=== PATIENT | male | born 1950 | race African-American/Black ===

== ENCOUNTER → 2018-02-15 11:35 | Outpatient (CLI) | payer MEDICARE, SELFPAY ==
[2018-02-06 14:55] VITALS: BMI 25.4
--- NOTE | 2018-02-15 11:38 | MRI_ITS ---
STUDY: MRI BRAIN WITH AND WITHOUT CONTRAST REASON FOR EXAM: Male, 67 years old. New onset headache TECHNIQUE: Standardized multiplanar fat and water weighted pulse sequences were obtained. 8 ml of Gadavist contrast material was administered intravenously for the contrast portion of the examination. COMPARISON: None. FINDINGS: Normal size of the ventricles and extra-axial spaces for the patient's age. There are multiple white matter hyperintensities, distributed throughout the deep white matter tracts of the cerebral hemispheres, consistent with moderate chronic white matter ischemic changes. There is no evidence for recent intracranial ischemia or other cause of cytotoxic edema on diffusion weighted imaging (DWI). Normal T2* images of the brain without demonstrated susceptibility artifact. There is no demonstrated hemosiderin stain. Normal bilateral basal ganglia. Normal thalami. There is no extra-axial fluid accumulation. Normal flow voids within the major intracranial circulation suggesting patency by spin echo criteria. Normal venous enhancement. There is no enhancing intra-axial or extra-axial abnormality. Normal sella turcica, pituitary gland, infundibular stalk, optic chiasm and hypothalamus. Normal tectal plate and pineal gland. Normal midbrain, virgil and medulla. Normal cerebellum. Normal basal cisterns. Normal bilateral temporal bones. Normal bilateral internal auditory canals. No demonstrated orbital abnormality, within the constraints of a routine brain study. Normal visualized paranasal sinuses. Normal calvarium and skull base. Normal visualized soft tissue structures. Normal visualized upper cervical spine. MRI/Brain W/WO Contrast IMPRESSION: Involutional changes of the brain, as described above. Electronically Signed: Surinder Lambert MD at 14:59 EST , Service support ,
[2018-02-15 12:18] LABS: Absolute Lymphocyte Count 2.12 X10^3/ul (0.83-4.51); Basophil# 0.02 X10^3/uL; Basophil% 0.4 % (0-1); Eosinophil# 0.14 X10^3/uL; Eosinophils% 2.9 % (0-5); Hemoglobin 13.3 g/dl (13.0-16.5); Lymphocyte # 2.12 X10^3/ul (4.0); Lymphocyte % 43.4 % (19-41); Mean Corp Hgb Conc 31.7 g/gl (32-36); Mean Corpuscular Hgb 29.7 pg (27.0-32.0); Mean Corpuscular Volume 93.8 fL (80-94); Mean Platelet Vol. 12.1 fl (6.2-12.0); Monocyte# 0.58 X10^3/uL; Monocyte% 11.9 % (0-10); Platelet Count 130 K/mm3 (150-450); RBC Distribution Width CV 12.8 % (11.6-14.6); Red Blood Count 4.48 M/mm3 (4.6-6.2); White Blood Count 4.9 K/mm3 (4.4-11.0)
[2018-02-15 12:25] LABS: POSITIVE COUNT NO; POSITIVE DIFFERENTIAL NO; POSITIVE MORPHOLOGY NO
[2018-02-15 12:32] LABS: CRP < 2.90 mg/L (0.0-3.0)
[2018-02-15 12:35] LABS: Creatinine, Serum 1.18 mg/dL (0.70-1.30); EST Glomerular Filtration Rate 65 mL/min (>60); Est Glom Filt Rate - Afr Amer 79 mL/min (>60)
--- OUTSIDE RECORDS SUMMARY | 2018-04-03 05:04 | XMS RPT_ITS ---
:1950 Author Organization [facility] Care Team Providers Name Role Phone ZEN DIAZ MD Attending Unavailable HILARY CELIS, DR. ALETHA Salas Primary Care Unavailable HILARY CELIS, DR. ALETHA Salas Primary Care Unavailable UMAIR CELIS MD. ROSETTA Lawson Admitting Unavailable UMAIR CELIS MD. ROSETTA Lawson Attending Unavailable HILARY CELIS, DR. ALETHA Salas Consulting Unavailable UMAIR CELIS MD. ROSETTA Lawson Consulting Unavailable MEREDITH WILLINGHAM MD Consulting Unavailable Isckarus, Mansour Attending Unavailable Isckarus, Mansour Referring Unavailable Alva García Primary Care Unavailable Isckarus, Mansour Attending Unavailable Alva García Primary Care Unavailable Isckarus, Mansour Consulting Unavailable Isckarus, Mansour Attending Unavailable Alva García Primary Care Unavailable Isckarus, Mansour Attending Unavailable Alva García Primary Care Unavailable Isckarus, Mansour Consulting Unavailable PROBLEMS PROBLEMS DATE TYPE CONDITION / CODE ATTENDING STATUS SOURCE 02/15/2018 Unknown R51 - Headache / Isckarus, Active Vicente R51(ICD-10) [facility] Repository 02/15/2018 Unknown R79.89 - Other Isckarus, Active Vicente specified [facility]ly [facility] Hospital findings of Repository blood chemistry / R79.89(ICD-10) PROCEDURES PROCEDURES No Procedure Records FoundRESULTS RESULTS ONCOLOGY VISIT REPORT Observed: 02/19/2018 Status: F Source: [place] 11:32 AM [facility] REPOSITORY [facility] Medical Oncology [address] [place] [address] OFFICE VISIT Date of Service: 02/19/18 1117 MR#: [id number] Acct: [id number] Name: DAGMAR POST Rep #: [id number] : 1950 From: Danielle Cortes MD Age/Sex: 67/M Location: OMD Status: Signed - Problem List (1) Abnormal CBC Status: Acute (2) Thrombocytopenia Status: Acute - Date of Service Date of Service:: 02/19/18 - Chief Complaint Normal CBC - History of Present Illness Patient is a 67-year-old gentleman who recently established care with Dr. García and routine CBC on January 13, 2018 reported a normal WBC of 5.0 with an absolute neutrophil count of 1.65, absolute lymph count of 2.55 and a left shift with increased myelocytes, normal platelet count of 200 K. Patient's H AND H are within normal range (13.4 and 42) with a normal MCV of 92. He has no known chronic inflammatory or infectious diseases. He smoked lightly in his young adult years less than a pack daily but has not smoked for over 30 years now. 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 A repeat CBC February 15, 2018 showed no abnormalities with WBCs, mild thrombocytopenia with a platelet count of 130 K. Since January 2018 he has experienced a new onset headache predominantly left-sided was diagnosed with trigeminal neuralgia and initially treated with carbamazepine without much improvement then switched to amitriptyline with some improvement. Brain MRI February 15, 2018 showed no evidence of mass-effect and involutional changes. - Past Medical/Social History Social History Smoking Status Never smoker Review of Systems Neurological:: Reports: Headache - Improving Comment: See my full consult note of February 06, 2018 Vital Signs Height 5 ft 7.5 in Weight: 77.02 kg Weight in Pounds 169.8 lbs Pulse Ox 94 - Physical Exam General: Alert, Oriented x3, No apparent distress, - - ECOG 0-1 For a full exam please see my note of February 06, 2018 Laboratory Data: RUN DATE: 02/19/18 [facility], DEPARTMENT OF LABORATORIES PAGE 1 RUN TIME: 1125 Specimen Inquiry [address] [place], [address] PATIENT: DAGMAR POST LOC: MRI U #: [id number] : 1950 AGE/SX: 67/M FACILITY: [facility] ROOM: RE02/15/[address]: Danielle Cotres MD STATUS: REG CLI BED: DIS: SPEC #: [id number] LORETA: 02/15/18 STATUS: COMP REQ #: [id number] RECD: 02/15/[address]: Danielle Cortes MD ENTERED: 02/15/[address]: Alva García DO COMMENTS: Reason for Laboratory Test . Test Result Flag Adult Reference Range CBCD WBC 4.9 4.4-11.0 K/mm3 RBC 4.48 L 4.6-6.2 M/mm3 HGB 13.3 13.0-16.5 g/dl HCT 42.0 40-54 % MCV 93.8 80-94 fL MCH 29.7 27.0-32.0 pg MCHC 31.7 L 32-36 g/gl RDW CV 12.8 11.6-14.6 % RDW SD 44.0 H 35.1-43.9 fl PLT 130 L 150-450 K/mm3 MPV 12.1 H 6.2-12.0 fl NEUT% 41.0 L 47-70 % LY% 43.4 H 19-41 % MONO% 11.9 H 0-10 % EO% 2.9 0-5 % BASO% 0.4 0-1 % IG % 0.400 0.0-0.9 % IG% - Immature Granulocytes (promyelocytes, myelocytes and metamyelocytes) > 1% indicates that a LEFT SHIFT is Present. Absolute Neut 2.0 2.0-7.7 X10 Absolute Lymph 2.12 0.83-4.51 X10 END OF REPORT Diagnostic Data: Brain MRI February 15, 2018: No mass lesions, chronic involutional changes Assessment and Plan 67-year-old male with: 1. Abnormal CBC: A left shift in myeloid series with increased myelocytes but no blasts noted on routine CBC in January 2018, resolved on follow-up in February 2018 most consistent with a reactive process. He has a residual mild thrombocytopenia, no further workup from hematology at this time and will place him on surveillance follow-up in 1 year 2. New onset headache, presumed trigeminal neuralgia, with no evidence of mass-effect on brain MRI February 2018. Patient was seen with his , impression and plan discussed Medications: Prescriptions This Visit Medication Instructions Recorded Acetaminophen/Diphenhydramine 1 each PO QHS 02/05/18 [Tylenol Pm Ex-Strength Caplet] Aspirin [Adult Aspirin] 81 mg PO DAILY 02/05/18 Clopidogrel Bisulfate [Plavix] 75 mg PO DAILY 02/05/18 Primary Care Provider: Alva García MD Referring Provider: 02/19/18 1132 <Electronically signed by Danielle Cortes MD> Date Danielle Cortes MD Cosigner Signature: Date (if applicable) CC: Alva García DO CBC W/DIFF, AUTOMATED Collected: 02/15/2018 Status: F Source: [place] 12:00 PM [facility] REPOSITORY Order Comment: Reason for Laboratory Test . TYPE CODE TESTS RESULT OUT OF RANGE REFERENCE UNITS LAB L100.1000 4.4-11.0 K/mm3 Normal WBC 4.9 LAB L100.1200 4.6-6.2 M/mm3 Low RBC 4.48 LAB L100.1300 13.0-16.5 g/dl Normal HGB 13.3 LAB L100.1400 40-54 % Normal HCT 42.0 LAB L100.1500 80-94 fL Normal MCV 93.8 LAB L100.1600 27.0-32.0 pg Normal MCH 29.7 LAB L100.1700 32-36 g/gl Low MCHC 31.7 LAB L100.1810 11.6-14.6 % Normal RDW CV 12.8 LAB L100.1820 35.1-43.9 fl High RDW SD 44.0 LAB L100.1900 150-450 K/mm3 Low PLT 130 LAB L100.2000 6.2-12.0 fl High MPV 12.1 LAB L100.2100 47-70 % Low NEUT% 41.0 LAB L100.2200 19-41 % High LY% 43.4 LAB L100.2300 0-10 % High MONO% 11.9 LAB L100.2400 0-5 % Normal EO% 2.9 LAB L100.2500 0-1 % Normal BASO% 0.4 LAB L100.2550 0.0-0.9 % Normal IM GRAN % 0.400 Result Comment: IG% - Immature Granulocytes (promyelocytes, myelocytes and metamyelocytes) > 1% indicates that a LEFT SHIFT is Present. LAB L100.2620 2.0-7.7 X10 3/uL Normal Absolute Neut 2.0 LAB L100.2720 0.83-4.51 X10 3/ul Normal Absolute Lymph 2.12 Performed By: #### L100.0100 #### [facility] [address] [place], [place], [address] CRP Collected: 02/15/2018 Status: F Source: [place] 12:00 PM [facility] REPOSITORY Order Comment: Reason for Laboratory Test . TYPE CODE TESTS RESULT OUT OF RANGE REFERENCE UNITS LAB L501.6710 0.0-3.0 mg/L Normal < 2.90 C-REACTIVE PROT Result Comment: C-Reactive Protein (CRP) provides useful information for the diagnosis, therapy and monitoring of inflammatory processes and associated diseases. For the evaluation of Relative Risk for Cardiovascular Disease, a High Sensitivity CRP (HSCRP) should be ordered. Performed By: #### L501.6710 #### [facility] [address] [place], [address] SERUM CREATININE AND Collected: 02/15/2018 Status: F Source: [place] GFR 12:00 PM [facility] REPOSITORY Order Comment: Reason for Laboratory Test To be drawn prior to MRI TYPE CODE TESTS RESULT OUT OF RANGE REFERENCE UNITS LAB L501.1100 0.70-1.30 mg/dL Normal 1.18 CREAT,SERUM Result Comment: The validity of the calculated GFR AND GFRAA in patients over 70 years has not been determined. Clinical correlation is essential. LAB L501.1110 >60 mL/min Normal EST GFR 65 Result Comment: Non- GFR Calc LAB L501.1115 >60 mL/min Normal EST GFR - AA 79 Result Comment: GFR Calc Performed By: #### L501.1105 #### [facility] [address] [place], [address] BRAIN W/WO CONTRAST Observed: 02/15/2018 Status: F Source: [place] 11:38 AM [facility] REPOSITORY [facility] Imaging Services [address] [facility] [place] [address] Brain W/WO Contrast MR#: [id number] Acct: [id number] Name: DAGMAR POST Rep #: [id number] : 1950 M 67 From: Surinder Lambert MD PCP: Alva García DO Status: REG CLI Study: Brain W/WO Contrast Date of Exam: 02/15/18 Exam# [id number] Ordering Dr: Danielle Cortes MD STUDY: MRI BRAIN WITH AND WITHOUT CONTRAST REASON FOR EXAM: Male, 67 years old. New onset headache TECHNIQUE: Standardized multiplanar fat and water weighted pulse sequences were obtained. 8 ml of Gadavist contrast material was administered intravenously for the contrast portion of the examination. COMPARISON: None. FINDINGS: Normal size of the ventricles and extra-axial spaces for the patient's age. There are multiple white matter hyperintensities, distributed throughout the deep white matter tracts of the cerebral hemispheres, consistent with moderate chronic white matter ischemic changes. There is no evidence for recent intracranial ischemia or other cause of cytotoxic edema on diffusion weighted imaging (DWI). Normal T2* images of the brain without demonstrated susceptibility artifact. There is no demonstrated hemosiderin stain. Normal bilateral basal ganglia. Normal thalami. There is no extra-axial fluid accumulation. Normal flow voids within the major intracranial circulation suggesting patency by spin echo criteria. Normal venous enhancement. There is no enhancing intra-axial or extra-axial abnormality. Normal sella turcica, pituitary gland, infundibular stalk, optic chiasm and hypothalamus. Normal tectal plate and pineal gland. Normal midbrain, virgil and medulla. Normal cerebellum. Normal basal cisterns. Normal bilateral temporal bones. Normal bilateral internal auditory canals. No demonstrated orbital abnormality, within the constraints of a routine brain study. Normal visualized paranasal sinuses. Normal calvarium and skull base. Normal visualized soft tissue structures. Normal visualized upper cervical spine. MRI/Brain W/WO Contrast IMPRESSION: Involutional changes of the brain, as described above. Electronically Signed: Surinder Lambert MD at 14:59 EST , Service support , CC: Alva García DO; Danielle Cortes MD Assistant Finance Director: Signed ONCOLOGY HISTORY AND Observed: 02/06/2018 Status: F Source: [place] PHYSICAL 4:32 PM [facility] REPOSITORY [facility] Medical Records Department [address] [place] [id number] History and Physical 02/06/18 1618 MR#: [id number] Acct: [id number] Name: DAGMAR POST Rep #: [id number] : 1950 67 From: Danielle Cortes MD PCP: Alva García DO Status: REG RCR Y Location: OMD - Problem List (1) Abnormal CBC Status: Acute Subjective Date of Service:: 02/06/18 Chief Complaint: Abnormal CBC History of Present Illness: Patient is a 67-year-old gentleman who recently established care with Dr. García and routine CBC on January 13, 2018 reported a normal WBC of 5.0 with an absolute neutrophil count of 1.65, absolute lymph count of 2.55 and a left shift with increased myelocytes, normal platelet count of 200 K. Patient's H AND H are within normal range (13.4 and 42) with a normal MCV of 92. He has no known chronic inflammatory or infectious diseases. He smoked lightly in his young adult years less than a pack daily but has not smoked for over 30 years now. 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 Since January 2018 he has experienced a new onset headache predominantly left-sided was diagnosed with trigeminal neuralgia and initially treated with carbamazepine without much improvement then switched to amitriptyline with some improvement. He also reported an ER visit in January 2018 at [facility] because of chest pain and shortness of breath where he underwent some imaging studies of his chest, some cardiac workup and to his knowledge no specific pathology was found. These records are not available at the time of this consultation. Health History: Past Surgical History (Last Reviewed 02/06/18 @ 14:50 by Shantel Pearson) History of cardiac catheterization (Acute) History of inguinal hernia repair (Acute) Family History (Last Reviewed 02/06/18 @ 14:51 by Shantel Pearson) Mother Cancer Sister Cancer Grandmother Glaucoma Allergies/Adverse Reactions: Allergy/AdvReac Type Severity Reaction Status Date / Time No Known Allergies Allergy Verified 02/06/18 14:51 Risk Factors Social History Smoking Status Never smoker Tobacco Risk Data: Tobacco Risk Smoking Status Never smoker Type of tobacco: Smokeless tobacco usage: Never Items/Day: Year started: Years used: Counseled to quit/cut down: Reason for no counseling performed: Reason for no pharmacotherapy: Tobacco use comments: Passive smoke exposure: No Substance Risk Drug use: No Caffeine use [drinks/day]: 5 Alcohol use: Yes Type of alcohol: occasionally Drinks per day: Has patient felt the need to cut down: Has the patient been annoyed by complaints: Has the patient felt guilty about drinking: Has the patient needed an eye type copy examiner in the mornings: Comments: Review of Systems Constitutional:: Denies: Fever, Sweats, Weight loss, Appetite change, Chills Cardiovascular:: Reports: Dyspnea on exertion. Denies: Chest pain, Palpitations, Orthopnea, PND, Shortness of breath Respiratory: Reports: Shortness of breath upon exertion. Denies: Cough, Hemoptysis, Shortness of Breath, Wheezing Gastrointestinal:: Denies: Abdominal pain, Nausea, Vomiting, Diarrhea, Constipation, Hematochezia Genitourinary: Denies: Dysuria, Hematuria, 15, Flank pain Musculoskeletal:: Denies: Back pain, Myalgia, Arthralgia Skin: Denies: Rash, Skin Changes, Wounds Neurological:: Reports: Headache - See HPI, Hearing loss, - - He has a chronic speech difficulty (all his life) and chronic unsteady gait when attempting to walk on a straight line heel to toe all his life. Denies: Dizziness, Visual changes, Tinnitus Psychiatric: Denies: Anxiety, Depression, Homicidal Ideations, Suicidal Ideations Vital Signs Height 5 ft 7.5 in Weight: 74.933 kg Weight in Pounds 165.2 lbs Pulse Ox 95 - Physical Exam General: Alert, Oriented x3, No apparent distress, - - ECOG 1 HEENT: Atraumatic, PERRLA, EOMI, Normocephalic Oropharynx:: Dry mucosa Neck:: Supple, Trachea midline. Negative for: JVD, bilateral Cardiac:: Regular rate, Regular rhythm, Normal S1, Normal S2. Negative for: Murmur Lungs: Clear to auscultation, Excusion symmetrical. Negative for: Rhonchi, Wheezes Abdomen:: Soft, Non-tender, Non-distended. Negative for: Hepatosplenomegaly Extremities:: Negative for: Cyanosis, Edema Neurological: Neuro grossly intact - Nonlateralizing, Slurred Speech - He has some degree of dysarthria reported by him and his all his life, Unsteady Gait - Unable to walk heel to toe in a straight line but reported that this is chronic years Skin:: Negative for: Lesions, Rash, Petechiae, Ecchymosis Psychiatric:: Appropriate affect, Euthymic Lymphatics:: Negative for: Cervical lymphadenopathy, Supraclavicular lymphadenopathy, Axillary lymphadenopathy Laboratory Data: Outside CBC from January 09, 2018 reviewed and summarized in HPI Assessment and Plan 67-year-old male with: 1. Abnormal CBC: A left shift in myeloid series with increased myelocytes but no blasts. Total WBC, neutrophil count and lymph count are within normal range. H AND H and platelets are within normal range also. The most likely cause for this is a reactive process rather than a primary bone marrow disease. We will repeat CBC today. 2. New onset headache, presumed trigeminal neuralgia, will obtain brain MRI to rule out intracranial pathology. 3. C-reactive protein. 4. Request records from ER visit at [facility] January 2018. Follow-up after above. Patient was seen with his , impression and plan discussed Medications: Prescriptions This Visit Medication Instructions Recorded Acetaminophen/Diphenhydramine 1 each PO QHS 02/05/18 [Tylenol Pm Ex-Strength Caplet] Aspirin [Adult Aspirin] 81 mg PO DAILY 02/05/18 Clopidogrel Bisulfate [Plavix] 75 mg PO DAILY 02/05/18 Primary Care Provider: Alva García MD Referring Provider: 02/06/18 2163 <Electronically signed by Danielle Cortes MD> Date Danielle Cortes MD Cosigner Signature: Date (if applicable) CC: Alva García DO; Danielle Cortes MD Signed NM MYOCARDIAL SPECT Observed: 01/03/2018 Status: F Source: GABO STRESS/REST 9:00 AM [facility] REPOSITORY ORIGINAL NM MYOCARDIAL SPECT STRESS/REST CLINICAL STATEMENT: chest pain TECHNIQUE: Lexiscan dose:0.4 mg Radiopharmaceutical (stress): Tc-99m Sestamibi Dose:10.0 mCi Radiopharmaceutical (rest): Tc-99m Sestamibi Dose:30.7 mCi SPECT acquisition and processing Reconstruction and reorientation of SPECT images into short axis, vertical and horizontal long axis planes Quantitative LVEF assessment COMPARISON:None REPORT:Left ventricle appears normal size on both stress and rest images. On the stress images, there is reduced radiotracer uptake in the anterior wall. Rest of the myocardium has homogenous radiotracer uptake. On the resting images, there is similar reduced radiotracer upta ke involving the anterior, apical and inferoseptal region. Gated SPECT imaging revealed normal wall motion and normal end systolic brightening and thickening of all myocardial segments. Calculated LVEF 56%. Left ventricle end-diastolic volume 70 mL. TID ratio 0.96 IMPRESSION: 1. No evidence of inducible ischemia or prior myocardial infarction. 2. Normal wall motion and left ventricle systolic function, calculated LVEF 56%. 3. Soft tissue/breast attenuation artifact noted. 4. No prior study available for comparison. Interpreted By: Frankie Oquendo Preliminary Report By: Frankie Oquendo Electronically Signed By: Frankie Oquendo Dictated Date: 01/03/2018 1:02:24 PM Prelim Date: 01/03/2018 1:02:24 PM Sign Date: 01/03/2018 1:06:59 PM TROP Collected: 01/03/2018 Status: F Source: [place] 5:13 AM [facility] REPOSITORY TYPE CODE TESTS RESULT OUT OF REFERENCE UNITS RANGE LAB TROP(LOINC) 0.000-0.040 ng/mL Troponin <0.020 Result Comment: Troponin I reference range: 0.00-0.040 ng/mL Negative and non-diagnostic. >0.040 ng/mL Consistent with cardiac damage, increased clinical risk and possibility of myocardial infarction. Serial measurements, a rise & fall in test results, clinical history, appropriate symptoms and/or ECG changes may help assess possibility of [place]. *Other non-acute coronary syndrome conditions such as CHF, myocarditis, pulmonary emboli, sepsis and cardiac surgery could result in myocardial damage and increased troponin levels. Performed By: #### TROP #### [place] [address] TROP Collected: 01/02/2018 Status: F Source: [facility] 10:58 PM [facility] REPOSITORY TYPE CODE TESTS RESULT OUT OF REFERENCE UNITS RANGE LAB TROP(LOINC) 0.000-0.040 ng/mL Troponin <0.020 Result Comment: Troponin I reference range: 0.00-0.040 ng/mL Negative and non-diagnostic. >0.040 ng/mL Consistent with cardiac damage, increased clinical risk and possibility of myocardial infarction. Serial measurements, a rise & fall in test results, clinical history, appropriate symptoms and/or ECG changes may help assess possibility of [place]. *Other non-acute coronary syndrome conditions such as CHF, myocarditis, pulmonary emboli, sepsis and cardiac surgery could result in myocardial damage and increased troponin levels. Performed By: #### TROP #### [address] [address] TROP Collected: 01/02/2018 Status: F Source: [place] 4:53 PM [facility] REPOSITORY TYPE CODE TESTS RESULT OUT OF REFERENCE UNITS RANGE LAB TROP(LOINC) 0.000-0.040 ng/mL Troponin <0.020 Result Comment: Troponin I reference range: 0.00-0.040 ng/mL Negative and non-diagnostic. >0.040 ng/mL Consistent with cardiac damage, increased clinical risk and possibility of myocardial infarction. Serial measurements, a rise & fall in test results, clinical history, appropriate symptoms and/or ECG changes may help assess possibility of [place]. *Other non-acute coronary syndrome conditions such as CHF, myocarditis, pulmonary emboli, sepsis and cardiac surgery could result in myocardial damage and increased troponin levels. Performed By: #### TROP #### [address] [address] XR CHEST 2 VIEWS Observed: 01/02/2018 Status: F Source: [place] 8:50 AM [facility] REPOSITORY ORIGINAL XR CHEST 2 VIEWS CLINICAL STATEMENT: Chest Pain. COMPARISON: 02/06/2014 FINDINGS: The cardiomediastinal contours are unchanged. Monitoring leads overlie the image. No focal consolidation, pleural effusion, vascular congestion or pneumothorax is shown. No acute osseous findings identified. IMPRESSION: No acute radiographic findings. Interpreted By: Mitali Gamboa MD Preliminary Report By: Mitali Gamboa MD Electronically Signed By: Mitali Gamboa MD Dictated Date: 01/02/2018 8:55:18 AM Prelim Date: 01/02/2018 8:55:18 AM Sign Date: 01/02/2018 8:56:23 AM CBC Collected: 01/02/2018 Status: F Source: [place] [facility] 8:13 AM [facility] REPOSITORY TYPE CODE TESTS RESULT OUT OF REFERENCE UNITS RANGE LAB WBC(LOINC) 4.60-10.80 10 3/mcL WBC 6.20 LAB RBCCT(LOINC 4.04-6.13 10 6/mcL ) RBC 4.79 LAB HGB(LOINC) 14.0-18.0 G/dL Hgb 14.1 LAB HCT(LOINC) 42.0-52.0 % Hct 44.0 LAB MCV(LOINC) 80.0-94.0 fL MCV 91.8 LAB MCH(LOINC) 27.0-31.2 pg MCH 29.4 LAB MCHC(LOINC) 31.8-35.4 G/dL MCHC 32.0 LAB RDW(LOINC) 11.5-14.5 % RDW 12.5 LAB PLT(LOINC) 130-400 10 3/mcL Platelet 146 LAB MPV(LOINC) 7.4-10.4 fL MPV 9.5 Performed By: #### CBC, ADIFF, ANEU #### [address] [address] #### TROP, BMP, GFR #### [address] [address] .AUTO DIFF Collected: 01/02/2018 Status: F Source: [facility] 8:13 AM [facility] REPOSITORY TYPE CODE TESTS RESULT OUT OF REFERENCE UNITS RANGE LAB TITA(LOINC) 37.0-80.0 % Neutrophil % 41.5 LAB LYM(LOINC) 10.0-50.0 % Lymphocyte % 45.7 LAB MON(LOINC) 1.7-13.0 % Monocyte % 9.9 LAB EO(LOINC) 0.0-7.0 % Eosinophil % 2.0 LAB BAS(LOINC) 0.0-2.5 % Basophil % 0.9 LAB ABLYM(LOIN 0.77-3.85 10 3/mcL C) Lymphocyte, 2.80 Absolute LAB BALDO(LOINC 0.15-1.00 10 3/mcL ) Monocyte, 0.60 Absolute LAB AEOS(LOINC 0.00-0.40 10 3/mcL ) Eosinophil, 0.10 Absolute LAB ABAS(LOINC 0.00-0.19 10 3/mcL ) Basophil, 0.10 Absolute Performed By: #### CBC, ADIFF, ANEU #### [address] [address] #### TROP, BMP, GFR #### [address] [address] .NEUABS Collected: 01/02/2018 Status: F Source: [facility] 8:13 AM [facility] REPOSITORY TYPE CODE TESTS RESULT OUT OF REFERENCE UNITS RANGE LAB ANEU(LOINC) 2.85-6.16 10 3/mcL Low Neutrophil, 2.60 Absolute Performed By: #### CBC, ADIFF, ANEU #### [address] [address] #### TROP, BMP, GFR #### [place] [id number] TROP Collected: 01/02/2018 Status: F Source: [facility] 8:13 AM [facility] REPOSITORY TYPE CODE TESTS RESULT OUT OF REFERENCE UNITS RANGE LAB TROP(LOINC) 0.000-0.040 ng/mL Troponin <0.020 Result Comment: Troponin I reference range: 0.00-0.040 ng/mL Negative and non-diagnostic. >0.040 ng/mL Consistent with cardiac damage, increased clinical risk and possibility of myocardial infarction. Serial measurements, a rise & fall in test results, clinical history, appropriate symptoms and/or ECG changes may help assess possibility of [place]. *Other non-acute coronary syndrome conditions such as CHF, myocarditis, pulmonary emboli, sepsis and cardiac surgery could result in myocardial damage and increased troponin levels. Performed By: #### HERMES TORRESIFF, ANEU #### [place] [address] #### TROP, BMP, GFR #### [place] [address] BMP Collected: 01/02/2018 Status: F Source: [facility] 8:13 AM [facility] REPOSITORY TYPE CODE TESTS RESULT OUT OF REFERENCE UNITS RANGE LAB GLU(LOINC) 80-115 mg/dL Glucose Level 102 LAB NA(LOINC) 136-145 mmol/L Sodium Level 136 LAB K(LOINC) 3.5-5.1 mmol/L Potassium Level 4.1 LAB CL(LOINC) 98-107 mmol/L Chloride 101 LAB CO2(LOINC) 23-31 mmol/L CO2 29 LAB EBAL(LOINC mEq/L ) Electrolyte Balance 6.0 LAB BUN(LOINC) 7-18 mg/dL Low BUN 1 LAB CRE(LOINC) 0.70-1.30 mg/dL Creatinine Lvl (s) 1.19 LAB BC(LOINC) 7-27 ratio Low BUN/Creatinine 1 Ratio LAB CA(LOINC) 8.4-10.2 mg/dL Calcium Lvl 9.8 Performed By: #### CBC, ADIFF, ANEU #### [facility] [address] [place], [place] [address] #### TROP, BMP, GFR #### [address] [address] .GFR Collected: 01/02/2018 Status: F Source: [place] [facility] 8:13 AM [facility] REPOSITORY TYPE CODE TESTS RESULT OUT OF REFERENCE UNITS RANGE LAB GFRAA(LOINC ml/min/1.73 ) sqm GFR 74 Palestinian Result Comment: GFR Population mean for , Non- Americans Ages 20-29 = 116 mL/min/1.73 sq.m. Ages 30-39 = 107 mL/min/1.73 sq.m. Ages 40-49 = 99 mL/min/1.73 sq.m. Ages 50-59 = 93 mL/min/1.73 sq.m. Ages 60-69 = 85 mL/min/1.73 sq.m. Ages 70+ = 75 mL/min/1.73 sq.m. Chronic Kidney Disease: Less than 60 mL/min/1.73 square meters End Stage Renal Disease: Less than 15 mL/min/1.73 square meters LAB GFRNO(LOINC) ml/min/1.73sqm GFR Non- 61 Result Comment: GFR Population mean for , Non- Americans Ages 20-29 = 116 mL/min/1.73 sq.m. Ages 30-39 = 107 mL/min/1.73 sq.m. Ages 40-49 = 99 mL/min/1.73 sq.m. Ages 50-59 = 93 mL/min/1.73 sq.m. Ages 60-69 = 85 mL/min/1.73 sq.m. Ages 70+ = 75 mL/min/1.73 sq.m. Chronic Kidney Disease: Less than 60 mL/min/1.73 square meters End Stage Renal Disease: Less than 15 mL/min/1.73 square meters Performed By: #### CBC, ADIFF, ANEU #### [place] [address] [place], [place] [address] #### TROP, BMP, GFR #### [address] [address] TROP Collected: 03/30/2017 Status: F Source: [facility] 10:12 AM [facility] REPOSITORY TYPE CODE TESTS RESULT OUT OF REFERENCE UNITS RANGE LAB TROP(LOINC) 0.00-0.30 ng/mL Troponin <0.30 Result Comment: Below measuring range >=0.30 Consistent with cardiac damage, increased clinical risk and possibility of myocardial infarction. Serial measurements, clinical history, appropriate symptoms and/or ECG changes may help assess possibility of [place]. *Other non-acute coronary syndrome conditions such as CHF, myocarditis, pulmonary emboli, sepsis and cardiac surgery could result in myocardial damage and increased troponin levels. Performed By: #### TROP, CBC, ADIFF, ANEU, BMP, GFR, APTT, PRO #### [place] [address] [place], [place] [address] CBC Collected: 03/30/2017 Status: F Source: [facility] 10:12 AM [facility] REPOSITORY TYPE CODE TESTS RESULT OUT OF REFERENCE UNITS RANGE LAB WBC(LOINC) 4.60-10.80 10 3/mcL High WBC 12.40 LAB RBCCT(LOINC 4.04-6.13 10 6/mcL ) RBC 4.66 LAB HGB(LOINC) 14.0-18.0 G/dL Low Hgb 13.7 LAB HCT(LOINC) 42.0-52.0 % Hct 42.3 LAB MCV(LOINC) 80.0-94.0 fL MCV 90.6 LAB MCH(LOINC) 27.0-31.2 pg MCH 29.3 LAB MCHC(LOINC) 31.8-35.4 G/dL MCHC 32.3 LAB RDW(LOINC) 11.5-14.5 % RDW 12.5 LAB PLT(LOINC) 130-400 10 3/mcL Platelet 183 LAB MPV(LOINC) 7.4-10.4 fL MPV 9.3 Performed By: #### TROP, CBC, ADIFF, ANEU, BMP, GFR, APTT, PRO #### [place] [address] [place], [place] [address] .AUTO DIFF Collected: 03/30/2017 Status: F Source: [facility] 10:12 [facility] REPOSITORY TYPE CODE TESTS RESULT OUT OF REFERENCE UNITS RANGE LAB TITA(LOINC) 37.0-80.0 % Neutrophil % 58.1 LAB LYM(LOINC) 10.0-50.0 % Lymphocyte % 25.1 LAB MON(LOINC) 1.7-13.0 % Monocyte High % 14.2 LAB EO(LOINC) 0.0-7.0 % Eosinophil % 2.3 LAB BAS(LOINC) 0.0-2.5 % Basophil % 0.3 LAB ABLYM(LOIN 0.77-3.85 10 3/mcL C) Lymphocyte, 3.10 Absolute LAB BALDO(LOINC 0.15-1.00 10 3/mcL ) High Monocyte, 1.80 Absolute LAB AEOS(LOINC 0.00-0.40 10 3/mcL ) Eosinophil, 0.30 Absolute LAB ABAS(LOINC 0.00-0.19 10 3/mcL ) Basophil, 0.00 Absolute Performed By: #### TROP, CBC, ADIFF, ANEU, BMP, GFR, APTT, PRO #### [address] [address] .NEUABS Collected: 03/30/2017 Status: F Source: [facility] 10:12 AM [facility] REPOSITORY TYPE CODE TESTS RESULT OUT OF REFERENCE UNITS RANGE LAB ANEU(LOINC) 2.85-6.16 10 3/mcL High Neutrophil, 7.20 Absolute Performed By: #### TROP, CBC, ADIFF, ANEU, BMP, GFR, APTT, PRO #### [address] [address] BMP Collected: 03/30/2017 Status: F Source: [facility] 10:12 AM [facility] REPOSITORY TYPE CODE TESTS RESULT OUT OF REFERENCE UNITS RANGE LAB 1547-9 80-115 mg/dL GLUCOSE 103 LAB NA(LOINC) 136-146 mEq/L Sodium Level 138 LAB K(LOINC) 3.5-5.1 mEq/L Potassium Level 3.8 LAB CL(LOINC) 98-107 mEq/L Chloride 101 LAB CO2(LOINC) 23-31 mEq/L CO2 27 LAB EBAL(LOINC mEq/L ) Electrolyte Balance 10.0 LAB BUN(LOINC) 7.0-18.0 mg/dL BUN 11.5 LAB CRE(LOINC) 0.6-1.2 mg/dL Creatinine Lvl (s) 1.2 LAB BC(LOINC) 7-27 ratio BUN/Creatinine 10 Ratio LAB CA(LOINC) 8.4-10.2 mg/dL Calcium Lvl 9.5 Performed By: #### TROP, CBC, ADIFF, ANEU, BMP, GFR, APTT, PRO #### [place] [address] [place], [place] [address] .GFR Collected: 03/30/2017 Status: F Source: [place] [facility] 10:12 AM [facility] REPOSITORY TYPE CODE TESTS RESULT OUT OF REFERENCE UNITS RANGE LAB GFRAA(LOINC ml/min/1.73 ) sqm GFR 75 Palestinian Result Comment: GFR Population mean for , Non- Americans Ages 20-29 = 116 mL/min/1.73 sq.m. Ages 30-39 = 107 mL/min/1.73 sq.m. Ages 40-49 = 99 mL/min/1.73 sq.m. Ages 50-59 = 93 mL/min/1.73 sq.m. Ages 60-69 = 85 mL/min/1.73 sq.m. Ages 70+ = 75 mL/min/1.73 sq.m. Chronic Kidney Disease: Less than 60 mL/min/1.73 square meters End Stage Renal Disease: Less than 15 mL/min/1.73 square meters LAB GFRNO(LOINC) ml/min/1.73sqm GFR Non- >60 Result Comment: GFR Population mean for , Non- Americans Ages 20-29 = 116 mL/min/1.73 sq.m. Ages 30-39 = 107 mL/min/1.73 sq.m. Ages 40-49 = 99 mL/min/1.73 sq.m. Ages 50-59 = 93 mL/min/1.73 sq.m. Ages 60-69 = 85 mL/min/1.73 sq.m. Ages 70+ = 75 mL/min/1.73 sq.m. Chronic Kidney Disease: Less than 60 mL/min/1.73 square meters End Stage Renal Disease: Less than 15 mL/min/1.73 square meters Performed By: #### TROP, CBC, ADIFF, ANEU, BMP, GFR, APTT, PRO #### [place] [address] [place], [place] [address] APTT Collected: 03/30/2017 Status: F Source: [place] [facility] 10:12 AM [facility] REPOSITORY TYPE CODE TESTS RESULT OUT OF REFERENCE UNITS RANGE LAB PDOSE(LOIN C) Heparin dose None (APTT) LAB APTT0(LOIN 26.9-35.2 seconds C) APTT 27.0 Result Comment: For Heparin anticoagulation therapy, the recommended therapeutic range is: 40-68.8 seconds (1.5 - 2.5 the normal plasma mean). Patients on heparin therapy may have an extreme result. Performed By: #### TROP, CBC, ADIFF, ANEU, BMP, GFR, APTT, PRO #### [place] [address] [place], [place] [address] PRO Collected: 03/30/2017 Status: F Source: [place] [facility] 10:12 AM [facility] TYPE CODE TESTS RESULT OUT OF REFERENCE UNITS RANGE LAB PT(LOINC) 9.8-13.5 seconds Protime High 13.7 LAB INR(LOINC) 0.9-1.2 ratio PT High International 1.3 Ratio Result Comment: Standard Dose 2.0 - 3.0 High Dose 2.5 - 3.5 The recommended therapeutic range for oral anticoagulant therapy is: LOW RISK: Prophylaxis of venous thrombosis INR: 2.0 - 3.0 Treatment of pulmonary embolism 2.0 - 3.0 Prevention of systemic embolism 2.0 - 3.0 HIGH RISK: Mechanical prosthetic valves 2.5 - 3.5 Performed By: #### TROP, CBC, ADIFF, ANEU, BMP, GFR, APTT, PRO #### [place] [address] [place], [place] [address] ALLERGIES ALLERGIES DATE TYPE / CODE NAME / CODE REACTION SEVERITY SOURCE 02/06/2018 Drug No Known Unknown [facility] Allergy/4160 Allergies/F00 [facility] 10760(SNOMED 1496265(RXNOR Repository CT) M) ENCOUNTERS ENCOUNTERS ADMIT/DISCHARGE ACCOUNT NUMBER ADMITTING ENCOUNTER LOCATION SOURCE CLASS 02/19/2018 [id number] Ambulatory BMSBuilding: [place] BMS.CF[facility] Repository 02/19/2018 [id number] Ambulatory [facility] ding:OMD Repository 02/15/2018 [id number] Ambulatory [facility] ding:MRI Repository 02/06/2018 [id number] Ambulatory BMSBuilding: [place] BMS.CF.[facility] Repository 01/02/2018/01/04/20 [id number] UMAIR AMBROSE., Ambulatory BBuilding:MS Gabo Recinos MD. ROSETTA Lawson URRoom: Health 0237Bed: A Foundation Repository 03/30/2017/03/30/19 [id number] Emergency BBuilding:ER Gabo Recinos O [facility] Foundation Repository PAYERS PAYERS ENCOUNTER GUARANTOR PAYER SUBSCRIBER SOURCE 02/19/2018 DAGMAR Primary DAGMAR [id number] Insurance:AETNAPolicy ROBINSONDOB: Community [facility]: [id number] [id number] Repository [address]Yza: ([phone]) Date:7929-52-71VM [phone] () [id number] BERNAL [phone]: 02/19/2018 Secondary NOT GIVENUNK [place] Insurance:SELF PAY [facility] Number: Effective Repository Date:2018-02-19 02/19/2018 DAGMAR Primary DAGMAR [id number] Insurance:AETNAPolicy ROB[facility] Number: [id number] HospitalBLYC5XEffective Repository [address]Cwy: ([phone]) Date:2213-14-59GK [phone] () [id number] BERNAL [phone]: 02/19/2018 Secondary NOT GIVENUNK [place] Insurance:SELF PAY [facility] Number: Effective Repository Date:2018-02-05 02/15/2018 DAGMAR Primary DAGMAR [id number] Insurance:AETNA ROBINSONDOB: [facility] Number: [id number] [id number] Repository [address]Eqp: ([phone]) Date:6294-59-40NB [phone] () [id number] BERNAL [phone]: 02/15/2018 Secondary NOT GIVENUNK [place] Insurance:SELF PAY [facility] Number: Effective Repository Date:2018-02-07 02/06/2018 DAGMAR Primary DAGMAR Zhang [id number] [facility]: [id number] KUN me [id number] Repository [address]Wsf: ([phone]) Date:6735-11-51SN [phone] (HP) [id number] DOMINIC CASTRO [phone]: 02/06/2018 Secondary NOT GIVENKEENA Zhang Insurance:SELF PAY [facility] Number: Effective Repository Date:2018-02-06 01/02/2018 DAGMAR [facility] ROBINSONDOB: Insurance:AETNA SEJALDOB: [facility] MEDICARE HMO [id number] Repository [facility] AMEPolicy Number: RICK TRIST[place] [id number] [facility] [place] [address]Qyg: (330) Date:2018-01-02 [address]Rwt: [id number] [phone] (HP)Tel: ([phone]) Name:[facility] [phone] (HP) (WP) DOMINIC Castro 000-0000 (WP) [phone]: 03/30/2017 DAGMAR Ayon [facility] ROBINSONDOB: Insurance:AETBUDDY POSTDOB: [facility] MEDICARE HMO [id number] Repository [facility] AMEPolicy Number: RICK TRISTAN [place] [id number] [facility] [address]Pqi: ([phone]) Date:2017-03-3091514Uil: [id number] [phone] (HP)Tel: ([phone]) Name:[facility] [phone] (HP) (WP) DOMINIC Castro 000-0000 (WP) [phone]:
== END ==
PROVIDERS: Family Provider Family Medicine; PCP Family Medicine; Referring Provider Internal Medicine Hematology & Oncology; Visit Provider Internal Medicine Hematology & Oncology
DX: R51 Headache (principal); R79.89 Other specified abnormal findings of blood chemistry
CPT/HCPCS: 36415; 70553; 82565; 85025; 86140; A9585